=== PATIENT | female | born 1990 | race Two or more races ===

== ENCOUNTER 2025-01-09 04:16 | Emergency (ER) | payer MEDICAID, OTHER ==
[~2025-01-09] VITALS: Ht 170.2 cm; Wt 74.8 kg
[2025-01-09 04:39] VITALS: BP 133/70; TEMP 98.4; O2SAT 97
[2025-01-09] MEDS ORDERED: LIDOCAINE 1%-EPI 1:100,000 20 ML VIAL ONE (04:45)
== END 2025-01-09 05:17 | disposition home or self-care (01) ==
LOC: ER 04:25
DX: S01.111A Laceration without foreign body of right eyelid and periocular area, initial encounter (principal); W22.8XXA Striking against or struck by other objects, initial encounter; Y93.89 Activity, other specified; Y92.89 Other specified places as the place of occurrence of the external cause; Y99.8 Other external cause status
CPT/HCPCS: 12011; 99282; A6403; J3490